=== PATIENT | female | born 1940 | race Caucasian/White ===

== ENCOUNTER 2018-12-18 15:15 | Emergency (ER) | payer MEDICARE ==
[~2018-12-18] VITALS: Ht 165.1 cm; Wt 106.6 kg
[~2018-12-18 15:15] MED LIST: CLON.5 PO; FURO40 PO; HYDACE5 PO; HYDRA50 PO; LISI20 PO; METO100ER PO; OXYACE5T PO; PANT40 PO; POTA10T PO; Prednisone20 MG PO; SIMV40 PO; VERA240ER PO
== END 2018-12-18 18:57 | disposition home or self-care (01) ==
LOC: ER 15:15
DX: S06.9X1A Unspecified intracranial injury with loss of consciousness of 30 minutes or less, initial encounter (principal); S00.12XA Contusion of left eyelid and periocular area, initial encounter; W01.198A Fall on same level from slipping, tripping and stumbling with subsequent striking against other object, initial encounter; Z88.2 Allergy status to sulfonamides; Z79.899 Other long term (current) drug therapy; Z79.52 Long term (current) use of systemic steroids; I10 Essential (primary) hypertension; Z87.891 Personal history of nicotine dependence
CPT/HCPCS: 70450; 70480; 99284-25

== ENCOUNTER → 2019-04-03 | Outpatient (CLI) | payer MEDICARE | END | disposition home or self-care (01) | LOC: PLD 08:02 → LAB SHORT 08:02 | DX: B35.1 Tinea unguium (principal) | CPT/HCPCS: 88305; 88312 ==

== ENCOUNTER 2020-10-23 09:23 | Day surgery (SDC) | payer MEDICARE ==
[~2020-10-23] VITALS: Ht 162.6 cm; Wt 103.2 kg
[~2020-10-23 09:23] MED LIST changes: +AMARYL1 M1 PO; +Aspir 8181 MG PO; +ERGO50000 PO; +FERROUS SULFAT325 M3 PO; +Isosorbide Mono30 MG PO; +K-Dur 20 meq T20 MEQ PO; +LOSARTAN POTAS100 MG PO; +MAGNESIUM OXID500 MG PO; +METO50ER PO; +NITR.4SL SL; +OMEP20ER PO; +PROLIA60 MG/1 ML SC; +ROPI.25 PO; +TURMERIC500 M2 PO; +VERA120ERB PO; +VIT1CAPS12 PO
--- NOTE | 2020-10-23 13:13 | NUR ---
10/23/20 1313 Ariel Song LATE ENTRY. PT NEEDED RESTROOM "URGENTLY." SHE WAS ESCORTED TO THE RESTROOM WITHOUT DIFFICULTY. WHILE IN THE RESTROOM THIS NURSE HEARD A LOUD BAG AGAINST THE WALL. I OPENED THE RESTROOM DOOR AND FOUND PT TO BE SEATED ON THE RESTROOM FLOOR WITH HER BACK AGAINST THE WALL. SHE STATES THAT SHE FELL WHILE TRYING TO WASH HER HANDS. PT WAS ALERT AND ORIENTED BUT COMPLAINED OF DIZZINESS. WHEN ASKED IF SHE HURT ANYWHERE SHE DID COMPLAIN OF RIGHT HIP PAIN BUT NOTES THE HIP ALWAYS HURTS AND IT IS NO DIFFERENT AT THIS TIME. I WAS ABLE TO GET HER TO HER FEET AND SHE WAS RETURNED TO HER ROOM VIA WHEELCHAIR. DR. LITTLEJOHN WAS NOTIFIED AND HE DID EXAMINE HER. HER NEURO EXAM WAS NORMAL AND THE ONLY PAIN ELICITED WAS WHEN HE PALPATED HER RIGHT HIP. SHE STATED SEVERAL TIMES TO DR LITTLEJOHN THAT HER PAIN IS HER "NORMAL" AND THAT SHE IS FINE. DR LITTLEJOHN OFFERED AN XRAY OF HER HIP BUT PT DECLINED. SHE WAS INSTRUCTED TO CONTACT [facility] OR DR. LITTLEJOHN'S OFFICE IF SHE HAS ANY CHANGE IN HER HIP PAIN. AT TIME OF DISCHARGE PT WAS STILL SAYING THAT HER HIP "IS FINE."
== END 2020-10-23 12:20 | disposition home or self-care (01) ==
LOC: ORSCSDS 09:23
PROVIDERS: Internal Medicine Gastroenterology
PROC: 0DBL8ZX Excision of Transverse Colon, Via Natural or Artificial Opening Endoscopic, Diagnostic (ICD-10-PCS; principal; 2020-10-23 10:30)
PROC: 0D758ZZ Dilation of Esophagus, Via Natural or Artificial Opening Endoscopic (ICD-10-PCS; principal; 2020-10-23 10:30)
PROC: 0DBM8ZX Excision of Descending Colon, Via Natural or Artificial Opening Endoscopic, Diagnostic (ICD-10-PCS; principal; 2020-10-23 10:30)
PROC: 0DBH8ZX Excision of Cecum, Via Natural or Artificial Opening Endoscopic, Diagnostic (ICD-10-PCS; principal; 2020-10-23 10:30)
PROC: 0DB78ZX Excision of Stomach, Pylorus, Via Natural or Artificial Opening Endoscopic, Diagnostic (ICD-10-PCS; principal; 2020-10-23 10:30)
DX: R13.10 Dysphagia, unspecified (principal); K21.00 Gastro-esophageal reflux disease with esophagitis, without bleeding; K29.70 Gastritis, unspecified, without bleeding; K22.2 Esophageal obstruction; K44.9 Diaphragmatic hernia without obstruction or gangrene; K31.4 Gastric diverticulum; K31.7 Polyp of stomach and duodenum; Z12.11 Encounter for screening for malignant neoplasm of colon; Z86.010 Personal history of colon polyps; D12.0 Benign neoplasm of cecum; D12.3 Benign neoplasm of transverse colon; D12.4 Benign neoplasm of descending colon; K64.8 Other hemorrhoids; K64.4 Residual hemorrhoidal skin tags; Z79.82 Long term (current) use of aspirin; Z79.899 Other long term (current) drug therapy; N18.9 Chronic kidney disease, unspecified; E11.9 Type 2 diabetes mellitus without complications; E78.5 Hyperlipidemia, unspecified; I10 Essential (primary) hypertension; Z86.718 Personal history of other venous thrombosis and embolism; Z87.891 Personal history of nicotine dependence
CPT/HCPCS: 82947; 88305; 88342; C1726; J2704; J3010; J7120

== ENCOUNTER 2022-03-14 08:21 | Emergency (ER) | payer MEDICARE ==
[~2022-03-14] VITALS: Ht 165.1 cm; Wt 106.6 kg
[2022-03-14 08:47] LABS: BASOPHILS ABSOLUTE AUTO 0.06 K/mm3 (0.00-0.23); BASOPHILS PERCENT AUTO 1 % (0-2); EOSINOPHILS ABSOLUTE AUTO 0.14 K/mm3 (0.00-0.68); EOSINOPHILS PERCENT AUTO 2 % (0-6); Hematocrit 37.9 % (33.0-51.0); Hemoglobin 12.1 g/dL (11.5-16.0); IMMATURE GRAN ABSOLUTE AUTO 0.04 K/mm3 (0.00-0.10); IMMATURE GRAN PERCENT AUTO 1 % (0-1); LYMPHOCYTES ABSOLUTE AUTO 2.18 K/mm3 (0.84-5.20); LYMPHOCYTES PERCENT AUTO 25 % (21-46); MONOCYTES PERCENT AUTO 10 % (4-13); Mean Corpuscular HGB 30.9 pg (26.0-34.0); Mean Corpuscular HGB Conc 31.9 g/dL (31.5-36.5); Mean Corpuscular Volume 97 fL (80-100); Mean Platelet Volume 10.4 fL (9.1-12.4); NEUTROPHILS ABSOLUTE AUTO 5.47 K/mm3 (1.96-9.15); NEUTROPHILS PERCENT AUTO 62 % (41-73); Platelet Count 257 K/mm3 (150-400); RDW Standard Deviation 53.6 fL (35.1-46.3); Red Blood Cell Count 3.92 M/mm3 (3.80-5.20); White Blood Cell Count 8.79 K/mm3 (4.00-11.30)
[2022-03-14 09:09] LABS: Albumin, Blood 3.5 g/dL (3.4-5.0); Bilirubin, Total 0.5 mg/dL (0.1-1.0); Bun/Creatinine Ratio 26.8 (12.0-20.0); Calcium, Blood 9.3 mg/dL (8.5-10.1); Creatinine, Blood 1.83 mg/dL (0.40-1.00); Globulin, Blood 3.4 g/dL (2.2-4.0); Magnesium, Blood 2.8 mg/dL (1.6-2.4); Potassium, Blood 3.9 mmol/L (3.5-5.5); Thyroid Stimulating Hormone 2.14 uIU/mL (0.360-4.800); Total Protein, Blood 6.9 g/dL (6.4-8.2)
[2022-03-14] MEDS ORDERED: Toprol Xl50 MG PO (11:35)
[2022-03-14] MEDS ORDERED: ELIQUIS2.5 MG PO (11:35)
== END 2022-03-14 11:50 | disposition home or self-care (01) ==
LOC: ER 08:21
PROVIDERS: Emergency Medicine
DX: I48.91 Unspecified atrial fibrillation (principal); I10 Essential (primary) hypertension; Z88.2 Allergy status to sulfonamides; Z79.899 Other long term (current) drug therapy; Z79.82 Long term (current) use of aspirin; Z79.84 Long term (current) use of oral hypoglycemic drugs
CPT/HCPCS: 71045; 80053; 83735; 84443; 85025; 93005; 93010; A9270; J7030

== ENCOUNTER 2022-05-25 16:34 | Inpatient (IN) | payer MEDICARE ==
[~2022-05-25] VITALS: Ht 162.6 cm; Wt 97.5 kg
[~2022-05-25 16:34] MED LIST changes: +ELIQUIS2.5 MG PO; -SIMV40 PO; +Toprol Xl50 MG PO; +ZOCOR20 MG PO
[2022-05-25 17:32] LABS: BASOPHILS ABSOLUTE AUTO 0.04 K/mm3 (0.00-0.23); BASOPHILS PERCENT AUTO 0 % (0-2); EOSINOPHILS ABSOLUTE AUTO 0.07 K/mm3 (0.00-0.68); EOSINOPHILS PERCENT AUTO 1 % (0-6); Hematocrit 38.2 % (33.0-51.0); Hemoglobin 12.7 g/dL (11.5-16.0); IMMATURE GRAN ABSOLUTE AUTO 0.11 K/mm3 (0.00-0.10); IMMATURE GRAN PERCENT AUTO 1 % (0-1); LYMPHOCYTES ABSOLUTE AUTO 0.83 K/mm3 (0.84-5.20); LYMPHOCYTES PERCENT AUTO 6 % (21-46); MONOCYTES PERCENT AUTO 7 % (4-13); Mean Corpuscular HGB 31.5 pg (26.0-34.0); Mean Corpuscular HGB Conc 33.2 g/dL (31.5-36.5); Mean Corpuscular Volume 95 fL (80-100); Mean Platelet Volume 11.7 fL (9.1-12.4); NEUTROPHILS ABSOLUTE AUTO 12.95 K/mm3 (1.96-9.15); NEUTROPHILS PERCENT AUTO 86 % (41-73); NRBC ABSOLUTE 0.05 K/mm3 (0.00-0.02); NRBC Auto 0.3 /100 WBC (0.0-0.2); Platelet Count 281 K/mm3 (150-400); RDW Coefficient Variation 13.9 % (11.7-14.2); RDW Standard Deviation 48.2 fL (35.1-46.3); Red Blood Cell Count 4.03 M/mm3 (3.80-5.20)
[2022-05-25 17:36] LABS: Base Excess Venous -2.5 mmol/L; Bicarbonate Venous 21.9 mmol/L (24.0-30.0); PCO2 Venous 43.5 mmHg (38-42); pH Blood Venous 7.34 (7.34-7.37)
[2022-05-25 17:57] LABS: Alanine Aminotransfer (ALT/SGP 23 U/L (12-78); Albumin, Blood 3.3 g/dL (3.4-5.0); Alk Phos 32 U/L (50-136); Anion Gap 10 mmol/L (6-16); Aspartate Aminotrans (AST/SGOT 20 U/L (12-37); Bilirubin, Total 0.5 mg/dL (0.1-1.0); Blood Urea Nitrogen 48 mg/dL (8-24); Bun/Creatinine Ratio 23.8 (12.0-20.0); CO2, Blood 23 mmol/L (21-32); Calcium, Blood 10.3 mg/dL (8.5-10.1); Chloride, Blood 97 mmol/L (98-108); Creatinine, Blood 2.02 mg/dL (0.40-1.00); Globulin, Blood 3.3 g/dL (2.2-4.0); Glomerular Filtration Rate 24 (60-); Glucose, Blood 628 mg/dL (70-99); Sodium, Blood 130 mmol/L (136-145); Total Protein, Blood 6.6 g/dL (6.4-8.2)
[2022-05-25 23:14] LABS: Glucose, Blood 576 mg/dL (70-99)
[2022-05-25 23:59] LABS: Source, Urine Straight Cath
[2022-05-26 00:06] LABS: Bilirubin, Urine Neg (Neg); Blood, Urine Neg (Neg); Glucose Qualitative, Urine 4+ (Neg); Ketones, Urine Neg (Neg); Leukocyte Esterase, Urine Neg (Neg); Nitrite, Urine Neg (Neg); Protein, Urine Neg (Neg); Urobilinogen, Urine NORM (Normal)
[2022-05-26 00:30] LABS: Appearance, Urine Clear (Clear); Color, Urine Yellow (P-Yellow)
[2022-05-26 00:35] LABS: Very Low Density Lipoprot Chol 30 mg/dL (6-32)
[2022-05-26 00:36] LABS: Cholesterol 108 mg/dL (50-200); HDL Cholesterol 55 mg/dL (>39); LDL/HDL RATIO 0.4; Low Density Lipoprotein Chol 23 mg/dL (0-110); Triglycerides 152 mg/dL (30-160)
[2022-05-26] MEDS ORDERED: HYDR100 PO (01:15)
[2022-05-26] MEDS ORDERED: OMEP20ER (01:16)
[2022-05-26] MEDS ORDERED: Isosorbide Mono30 MG PO (01:16)
[2022-05-26] MEDS ORDERED: Vitamin D1000 UNI1 PO (01:17)
[2022-05-26] MEDS ORDERED: GLIP5ER PO (01:18)
[2022-05-26] MEDS ORDERED: JARDIANCE25 MG PO (01:18)
[2022-05-26] MEDS ORDERED: METO100ER PO (01:19)
[2022-05-26] MEDS ORDERED: NIFE30ER PO (01:20)
[2022-05-26] MEDS ORDERED: OMEP20ER PO (01:22)
[2022-05-26 02:22] LABS: Glucose, Blood 539 mg/dL (70-99)
[2022-05-26 07:43] LABS: BASOPHILS ABSOLUTE AUTO 0.02 K/mm3 (0.00-0.23); BASOPHILS PERCENT AUTO 0 % (0-2); EOSINOPHILS ABSOLUTE AUTO 0.06 K/mm3 (0.00-0.68); EOSINOPHILS PERCENT AUTO 0 % (0-6); Hematocrit 35.9 % (33.0-51.0); IMMATURE GRAN ABSOLUTE AUTO 0.09 K/mm3 (0.00-0.10); IMMATURE GRAN PERCENT AUTO 1 % (0-1); LYMPHOCYTES ABSOLUTE AUTO 0.82 K/mm3 (0.84-5.20); LYMPHOCYTES PERCENT AUTO 6 % (21-46); MONOCYTES PERCENT AUTO 8 % (4-13); Mean Corpuscular HGB 31.7 pg (26.0-34.0); Mean Corpuscular HGB Conc 33.4 g/dL (31.5-36.5); Mean Corpuscular Volume 95 fL (80-100); Mean Platelet Volume 11.5 fL (9.1-12.4); NEUTROPHILS ABSOLUTE AUTO 11.58 K/mm3 (1.96-9.15); NEUTROPHILS PERCENT AUTO 85 % (41-73); Platelet Count 211 K/mm3 (150-400); RDW Coefficient Variation 13.8 % (11.7-14.2); RDW Standard Deviation 47.8 fL (35.1-46.3); Red Blood Cell Count 3.79 M/mm3 (3.80-5.20); White Blood Cell Count 13.67 K/mm3 (4.00-11.30)
[2022-05-26 08:29] LABS: Albumin, Blood 3.2 g/dL (3.4-5.0); Bilirubin, Total 0.5 mg/dL (0.1-1.0); Calcium, Blood 10.3 mg/dL (8.5-10.1); Creatinine, Blood 2.17 mg/dL (0.40-1.00); Globulin, Blood 3.1 g/dL (2.2-4.0); Potassium, Blood 4.2 mmol/L (3.5-5.5); Total Protein, Blood 6.3 g/dL (6.4-8.2)
--- NOTE | 2022-05-26 17:59 | NUR ---
SHIFT SUMMARY PATIENT ADMITTED FROM ER AT 1035. PATIENT SETTLED INTO ROOM. PATIENT ORIENTED TO CALL LIGHT AND TV CONTROL. PATIENT DENIES PAIN, NAUSEA, AND SHORTNESS OF BREATH SINCE ADMISSION. PATIENT RESTING IN BED, SLEEPING ON AND OFF MOST OF SHIFT. PATIENT SON VISITED. ACOSTA IS PATENT AND DRAINING TO GRAVITY. PATIENT IS NPO. NEW IV PLACED DUE TO LEAKING. PATIENT IS PLEASANT AND COOPERATIVE WITH CARE.
--- NOTE | 2022-05-27 04:32 | NUR ---
SHIFT SUMMARY PATIENT HAD NO ACUTE CHANGES. AXOX 4 AND BEDREST. NPO. PIV REMAINS INTACT. NS INFUSING @ 100 mL/HR BAG 2 OF 2. CBG Q6 CHECK 116. APPLICATION CONSULTANT REPORTS AFIB 116. ACOSTA PATENT AND DRAINING TO GRAVITY. DENIES PAIN, SOB, AND N/V. AFEBRILE. CALL LIGHT IN REACH. BED IN LOWEST POSITION. WILL CONTINUE TO MONITOR UNTIL DAY SHIFT NURSE ASSUMES CARE.
[2022-05-27 04:51] LABS: Hemoglobin 11.4 g/dL (11.5-16.0); Mean Corpuscular HGB 31.7 pg (26.0-34.0); Mean Corpuscular HGB Conc 33.5 g/dL (31.5-36.5); Mean Corpuscular Volume 94 fL (80-100); Mean Platelet Volume 11.5 fL (9.1-12.4); Platelet Count 192 K/mm3 (150-400); White Blood Cell Count 13.05 K/mm3 (4.00-11.30)
[2022-05-27 05:22] LABS: Albumin, Blood 2.5 g/dL (3.4-5.0); Albumin/Globulin Ratio 0.8 (0.8-1.8); Bilirubin, Total 0.6 mg/dL (0.1-1.0); Bun/Creatinine Ratio 21.7 (12.0-20.0); Calcium, Blood 9.4 mg/dL (8.5-10.1); Creatinine, Blood 1.8 mg/dL (0.40-1.00); Potassium, Blood 3.7 mmol/L (3.5-5.5); Total Protein, Blood 5.5 g/dL (6.4-8.2)
--- NOTE | 2022-05-27 18:06 | NUR ---
SHIFT SUMMARY PATIENT DENIES PAIN, NAUSEA, AND SHORTNESS OF BREATH. PATIENT IS A 1P WITH [facility] FOR TRANSFERS. PATIENT WORKED WITH PT AND OT TODAY. PATIENT SON AT BEDSIDE WITH MANY QUESTIONS. PATIENT ADVANCED TO CLEAR LIQUID DIET, TOLERATING WELL. PATIENT DENIES PAIN AND NAUSEA AFTER EATING. ACOSTA IS PATENT AND DRAINING TO GRAVITY. PATIENT IS EATING AND DRINKING WELL. PATIENT IS PLEASANT AND COOPERATIVE WITH CARE.
--- NOTE | 2022-05-28 04:25 | NUR ---
SHIFT SUMMARY PATIENT HAD NO ACUTE CHANGES. AXOX 4 AND 1-2 ASSIST W/FWW TO BSC. PIV REMAINS INTACT. ACOSTA PATENT AND DRAINING TO GRAVITY. CBG Q6 CHECK 205. VSS/AFEBRILE. DENIES PAIN, SOB, AND N/V. COOPERATIVE WITH CARE. CALL LIGHT IN REACH. BED IN LOWEST POSITION. WILL CONTINUE TO MONITOR UNTIL DAY SHIFT NURSE ASSUMES CARE.
[2022-05-28 04:56] LABS: Hematocrit 31.5 % (33.0-51.0); Hemoglobin 10.6 g/dL (11.5-16.0); Mean Corpuscular HGB 31.7 pg (26.0-34.0); Mean Corpuscular HGB Conc 33.7 g/dL (31.5-36.5); Mean Corpuscular Volume 94 fL (80-100); Mean Platelet Volume 11.5 fL (9.1-12.4); Platelet Count 188 K/mm3 (150-400); Red Blood Cell Count 3.34 M/mm3 (3.80-5.20)
[2022-05-28 05:18] LABS: Albumin, Blood 2.4 g/dL (3.4-5.0); Albumin/Globulin Ratio 0.8 (0.8-1.8); Bilirubin, Total 0.4 mg/dL (0.1-1.0); Bun/Creatinine Ratio 22.4 (12.0-20.0); Calcium, Blood 8.9 mg/dL (8.5-10.1); Creatinine, Blood 1.61 mg/dL (0.40-1.00); Potassium, Blood 3.6 mmol/L (3.5-5.5); Total Protein, Blood 5.4 g/dL (6.4-8.2)
--- NOTE | 2022-05-28 18:49 | NUR ---
SHIFT SUMMARY PT A&O X 4. VSS. NO ACUTE CHANGES TODAY. PARTICIPATED WITH PT TODAY. F/C REMAINS INTACT & PATENT. NO C/O PAIN OR DISCOMFORT.
--- NOTE | 2022-05-29 04:20 | NUR ---
SHIFT SUMMARY PATIENT HAD NO ACUTE CHANGES. AXOX 4 AND ONE ASSIST TO BSC W/FWW. ACOSTA PATENT AND DRAINING TO GRAVITY. PIV REMAINS INTACT. CBG 246. VSS/AFEBRILE. DENIES PAIN, SOB, AND N/V. COOPERATIVE WITH CARE. CALL LIGHT IN REACH. BED IN LOWEST POSITION. WILL CONTINUE TO MONITOR UNTIL DAY SHIFT NURSE ASSUMES CARE.
[2022-05-29 05:46] LABS: Hematocrit 31.8 % (33.0-51.0); Hemoglobin 10.4 g/dL (11.5-16.0); Mean Corpuscular HGB Conc 32.7 g/dL (31.5-36.5); Mean Corpuscular Volume 95 fL (80-100); Mean Platelet Volume 11.4 fL (9.1-12.4); Platelet Count 178 K/mm3 (150-400); RDW Coefficient Variation 14.2 % (11.7-14.2); RDW Standard Deviation 49.1 fL (35.1-46.3); Red Blood Cell Count 3.36 M/mm3 (3.80-5.20); White Blood Cell Count 8.69 K/mm3 (4.00-11.30)
[2022-05-29 06:04] LABS: Bun/Creatinine Ratio 24.7 (12.0-20.0); Calcium, Blood 8.6 mg/dL (8.5-10.1); Creatinine, Blood 1.62 mg/dL (0.40-1.00); Potassium, Blood 3.6 mmol/L (3.5-5.5)
--- NOTE | 2022-05-29 15:24 | NUR ---
DC HOME F/C DC'D WITH CATH INTACT 2 HRS PRIOR TO DC. PT SELF CATHS AT HOME. PIV DC'D WITH CATH TIP INTACT, NO REDNESS OR SWELLING NOTED. WRITTEN AND VERBAL DC INSTRUCTIONS GIVEN TO PT WITH SON PRESENT. BOTH VERBALIZED GOOD UNDERSTANDING. NEW SCRIPTS FAXED TO [facility] PER PT REQUEST. ALL QUESTIONS & CONCERNS ANSWERED. PT TO SON'S PRIVATE VEHICLE WITH ALL PERSONAL BELONGINGS VIA W/C.
== END 2022-05-29 15:45 | disposition home or self-care (01) | DRG 438 ==
LOC: ER 16:34 → MEDS 05-26 01:09 → ERHOLD 05-26 01:09 → MEDS 05-26 10:46
PROVIDERS: Emergency Medicine; Family Medicine; Internal Medicine; Physician Assistant; ADMIT Student in an Organized Health Care Education/Training Program
DX: K85.90 Acute pancreatitis without necrosis or infection, unspecified (principal); G93.41 Metabolic encephalopathy; I13.0 Hypertensive heart and chronic kidney disease with heart failure and stage 1 through stage 4 chronic kidney disease, or unspecified chronic kidney disease; N17.9 Acute kidney failure, unspecified; N18.4 Chronic kidney disease, stage 4 (severe); E11.22 Type 2 diabetes mellitus with diabetic chronic kidney disease; K21.9 Gastro-esophageal reflux disease without esophagitis; I48.91 Unspecified atrial fibrillation; E11.65 Type 2 diabetes mellitus with hyperglycemia; R94.31 Abnormal electrocardiogram [ECG] [EKG]; I50.9 Heart failure, unspecified; Z90.49 Acquired absence of other specified parts of digestive tract; Z90.710 Acquired absence of both cervix and uterus; Z98.890 Other specified postprocedural states; Z88.2 Allergy status to sulfonamides; Z79.01 Long term (current) use of anticoagulants; Z79.82 Long term (current) use of aspirin; Z79.899 Other long term (current) drug therapy
CPT/HCPCS: 36415; 51702; 76705; 80048; 80053; 80061; 81003; 82803; 82947; 83690; 83880; 85025; 85027; 93005; 93010; 93306; 96374-59; 96375-59; 96376-59; 97110; 97116; 97162; 97165; 97530; 97535; 99285-25; A9270; J1170; J2405; J7030; J7120

== ENCOUNTER 2022-06-01 11:05 | Inpatient (IN) | payer MEDICARE ==
[~2022-06-01] VITALS: Ht 165.1 cm; Wt 99.7 kg
[~2022-06-01 11:05] MED LIST changes: +GLIP5ER PO; +HYDR100 PO; +JARDIANCE25 MG PO; +NIFE30ER PO; +OMEP20ER; +Vitamin D1000 UNI1 PO
[2022-06-01 11:33] LABS: BASOPHILS ABSOLUTE AUTO 0.05 K/mm3 (0.00-0.23); BASOPHILS PERCENT AUTO 1 % (0-2); EOSINOPHILS ABSOLUTE AUTO 0.15 K/mm3 (0.00-0.68); EOSINOPHILS PERCENT AUTO 1 % (0-6); Hematocrit 34.6 % (33.0-51.0); Hemoglobin 11.1 g/dL (11.5-16.0); IMMATURE GRAN ABSOLUTE AUTO 0.07 K/mm3 (0.00-0.10); IMMATURE GRAN PERCENT AUTO 1 % (0-1); LYMPHOCYTES ABSOLUTE AUTO 0.71 K/mm3 (0.84-5.20); LYMPHOCYTES PERCENT AUTO 7 % (21-46); MONOCYTES ABSOLUTE AUTO 0.99 K/mm3 (0.16-1.47); MONOCYTES PERCENT AUTO 9 % (4-13); Mean Corpuscular HGB 31.1 pg (26.0-34.0); Mean Corpuscular HGB Conc 32.1 g/dL (31.5-36.5); Mean Corpuscular Volume 97 fL (80-100); Mean Platelet Volume 11.2 fL (9.1-12.4); NEUTROPHILS ABSOLUTE AUTO 8.99 K/mm3 (1.96-9.15); NEUTROPHILS PERCENT AUTO 82 % (41-73); Platelet Count 257 K/mm3 (150-400); RDW Coefficient Variation 14.6 % (11.7-14.2); RDW Standard Deviation 51.8 fL (35.1-46.3); Red Blood Cell Count 3.57 M/mm3 (3.80-5.20); White Blood Cell Count 10.96 K/mm3 (4.00-11.30)
[2022-06-01 11:47] LABS: Base Excess Venous -5.6 mmol/L; Bicarbonate Venous 20.3 mmol/L (24.0-30.0); PCO2 Venous 36.1 mmHg (38-42); pH Blood Venous 7.35 (7.34-7.37)
[2022-06-01 11:57] LABS: Albumin, Blood 2.9 g/dL (3.4-5.0); Albumin/Globulin Ratio 0.8 (0.8-1.8); Bilirubin, Total 0.4 mg/dL (0.1-1.0); Bun/Creatinine Ratio 17.1 (12.0-20.0); Calcium, Blood 8.6 mg/dL (8.5-10.1); Creatinine, Blood 1.46 mg/dL (0.40-1.00); Globulin, Blood 3.7 g/dL (2.2-4.0); Potassium, Blood 4.1 mmol/L (3.5-5.5); Total Protein, Blood 6.6 g/dL (6.4-8.2)
[2022-06-01 13:01] LABS: Influenza A, PCR NEGATIVE (NEGATIVE); Influenza B, PCR NEGATIVE (NEGATIVE); Resp Syncytial Virus, PCR NEGATIVE (NEGATIVE); SARS-Cov-2 (COVID-19) PCR, MMC NEGATIVE (NEGATIVE)
--- NOTE | 2022-06-01 14:46 | NUR ---
Report received from DAPHNIE Kahn. Pt to come to [facility] shortly.
--- NOTE | 2022-06-01 15:56 | NUR ---
Pt arrived to PCU, son Buster is with her.
[2022-06-01] MEDS ORDERED: INSULANI SC (16:07)
--- NOTE | 2022-06-01 18:03 | NUR ---
Pt arrived to unit approx 1600, and was able to stand and transfer from the stretcher to the bed and sit on the side of bed during initial assessment. She was short of breath with the activity, and used the walker for transfer. Staff assist using the gait belt, moderate assistance needed to stand and transfer, and she needed maximal assistance to get her legs into the bed. She requires no supplemental oxygen. Cardizem gtt infusing at 10 cc/hour, heart rate 130-140 upon arrival. B/P noted stable, rate increased to 15 cc/hour. At this time heart rate is 113 bpm and blood pressure is 106/94 (100). She ate dinner after getting ordered insulin. Dr. Wolfe was called regarding CBG 420. New orders received. Admission assessment and history were done with the patient, and pt said that she did not want CPR nor artificial ventilation. Her son Buster was supportive of her decision. Called Dr. Wolfe and notified him of this.
[2022-06-02 04:32] LABS: Hemoglobin 10.5 g/dL (11.5-16.0); Mean Corpuscular HGB 31.9 pg (26.0-34.0); Mean Corpuscular HGB Conc 33.9 g/dL (31.5-36.5); Mean Corpuscular Volume 94 fL (80-100); Mean Platelet Volume 11.1 fL (9.1-12.4); Platelet Count 240 K/mm3 (150-400); RDW Coefficient Variation 14.6 % (11.7-14.2); RDW Standard Deviation 50.4 fL (35.1-46.3); Red Blood Cell Count 3.29 M/mm3 (3.80-5.20); White Blood Cell Count 8.96 K/mm3 (4.00-11.30)
[2022-06-02 04:54] LABS: Bun/Creatinine Ratio 16.2 (12.0-20.0); Calcium, Blood 8.7 mg/dL (8.5-10.1); Creatinine, Blood 1.54 mg/dL (0.40-1.00); Magnesium, Blood 2.2 mg/dL (1.6-2.4)
--- NOTE | 2022-06-02 05:35 | NUR ---
SHIFT SUMMARY PT IS A&OX4, Q2 TURN IN BED, HAS HAD NO COMPLAINTS THIS SHIFT, SP02 >95% RA, AND HAS BEEN AFIB 80'S-140'S THIS SHIFT ON A DILT DRIP. HER BP'S HAVE BEEN ON THE SOFTER SIDE T/O THE SHIFT BUT MAP HAS REMAINED STABLE. PT CALLS APPROPRIATELY, BED ALARM IS ONE, CALL LIGHT IS IN REACH, AND BED IS IN A LOW POSITION. WILL CONTINUE TO MONITOR UNTIL SHIFT REPORT IS GIVEN TO THE ONCOMING SHIFT RN. SEE NOTES FOR ANY UPDATES.
--- NOTE | 2022-06-02 07:22 | NUR ---
Pt is awake, alert and oriented. Pleasantly conversant. Pt was assisted up to recliner at bedside. Heartrate on 10 mg/hour of cardizem gtt is 110-152 while sitting up in chair, talking with son. Dyspnea noted with activity, but she recovered within some minutes. Denies pain/discomfort this morning. States she slept poorly and is tired this morning. Lung sounds are clear except for inspiratory crackles on the left side posterior bases. No peripheral edema noted. Pt states that she does have pain on the left calf since falling 2 weeks ago. Noted some scattered bruising on the left leg, and a little on the right as well. DNR bracelet is on.
--- NOTE | 2022-06-02 08:55 | NUR ---
Dr. Persaud and Dr. Patricia rounded this morning.
[2022-06-02 09:29] LABS: Source, Urine Foley catheter
--- NOTE | 2022-06-02 09:29 | NUR ---
Pt's IV came out. Not certain how long the IV catheter had not been in place, as it was still secured partially by the dressing; Heart rate 105-130 at this time. Toprol XL was just admininstered.
[2022-06-02 09:33] LABS: Appearance, Urine Clear (Clear); Bilirubin, Urine Neg (Neg); Blood, Urine 2+ (Neg); Color, Urine Yellow (P-Yellow); Glucose Qualitative, Urine 2+ (Neg); Ketones, Urine Neg (Neg); Leukocyte Esterase, Urine 1+ (Neg); Nitrite, Urine Neg (Neg); Protein, Urine 2+ (Neg); Urobilinogen, Urine NORM (Normal)
[2022-06-02 09:53] LABS: Squamous Epithelial Cells Mod /hpf (Few)
[2022-06-02 09:54] LABS: Bacteria Many /hpf; Granular Casts 0-2 /lpf (0); Yeast/Fungi Urine Mod /hpf
[2022-06-02 11:51] LABS: Albumin, Blood 2.7 g/dL (3.4-5.0); Albumin/Globulin Ratio 0.9 (0.8-1.8); Bilirubin, Direct 0.2 mg/dL (0.0-0.3); Bilirubin, Indirect 0.2 mg/dL (0.1-0.7); Bilirubin, Total 0.4 mg/dL (0.1-1.0); Globulin, Blood 3.1 g/dL (2.2-4.0); Total Protein, Blood 5.8 g/dL (6.4-8.2)
[2022-06-02 11:57] LABS: Thyroid Stimulating Hormone 2.62 uIU/mL (0.360-4.800)
--- NOTE | 2022-06-02 16:36 | NUR ---
Call to Dr. Patricia regarding persistent RVR 120-140 this afternoon, while pt is at rest. Pt is not in distress, no dyspnea, and no pain/discomfort. B/P is stable.
--- NOTE | 2022-06-02 17:26 | NUR ---
Starting amiodarone bolus
--- NOTE | 2022-06-03 04:19 | NUR ---
SHIFT SUMMARY NO ACUTE CHANGES THIS SHIFT. AXO. VSS. AMIO GTT CONTINUES TO INFUSE, TITRATED TO HALF RATE. HR HAS TRENDED FROM 120'S TO 100'S. BP SOFT BUT STABLE WITH MAP >65. REMAINS IN AFIB. PT BEING ROLLED BY STAFF. ACOSTA SECURED, CLEANED. ENCOURAGING ROM WITH PATIENT WHEN AWAKE. OTHERWISE, PT USING CALL LIGHT APPROPRIATELY. BED IN LOW POSITION.
[2022-06-03 06:36] LABS: BASOPHILS ABSOLUTE AUTO 0.03 K/mm3 (0.00-0.23); BASOPHILS PERCENT AUTO 0 % (0-2); EOSINOPHILS ABSOLUTE AUTO 0.21 K/mm3 (0.00-0.68); EOSINOPHILS PERCENT AUTO 2 % (0-6); Hemoglobin 10.8 g/dL (11.5-16.0); IMMATURE GRAN ABSOLUTE AUTO 0.08 K/mm3 (0.00-0.10); IMMATURE GRAN PERCENT AUTO 1 % (0-1); LYMPHOCYTES ABSOLUTE AUTO 0.92 K/mm3 (0.84-5.20); LYMPHOCYTES PERCENT AUTO 10 % (21-46); MONOCYTES ABSOLUTE AUTO 0.92 K/mm3 (0.16-1.47); MONOCYTES PERCENT AUTO 10 % (4-13); Mean Corpuscular HGB 31.8 pg (26.0-34.0); Mean Corpuscular HGB Conc 33.8 g/dL (31.5-36.5); Mean Corpuscular Volume 94 fL (80-100); Mean Platelet Volume 11.1 fL (9.1-12.4); NEUTROPHILS ABSOLUTE AUTO 7.46 K/mm3 (1.96-9.15); NEUTROPHILS PERCENT AUTO 78 % (41-73); Platelet Count 233 K/mm3 (150-400); RDW Coefficient Variation 14.8 % (11.7-14.2); White Blood Cell Count 9.62 K/mm3 (4.00-11.30)
[2022-06-03 06:53] LABS: Albumin, Blood 2.7 g/dL (3.4-5.0); Albumin/Globulin Ratio 0.8 (0.8-1.8); Bilirubin, Total 0.4 mg/dL (0.1-1.0); Bun/Creatinine Ratio 20.8 (12.0-20.0); Calcium, Blood 8.5 mg/dL (8.5-10.1); Creatinine, Blood 1.59 mg/dL (0.40-1.00); Globulin, Blood 3.2 g/dL (2.2-4.0); Total Protein, Blood 5.9 g/dL (6.4-8.2)
--- NOTE | 2022-06-03 17:27 | NUR ---
ASSUMED CARE OF PT AT 0700 THIS AM. NO ACUTE CHANGES. PT ON AMIO GTT MOST OF THE DAY, SWITCHED TO PO DOSAGE THIS EVENING. PT OOB TO CHAIR FOR SEVERAL HOURS TODAY AFTER WORKING WITH PT. CASE MANAGEMENT WORKING ON ARRANGEMENTS FOR SNF PLACEMENT AT DISCHARGE. SEE DOCUMENTED VS AND ASSESSMENT. PT ABLE TO USE CALL LIGHT, CALL LIGHT IN REACH, WILL CONTINUE TO MONITOR AND GIVE REPORT TO NOC SHIFT RN.
--- NOTE | 2022-06-04 06:41 | NUR ---
NOC SHIFT SUMMARY PT SLEPT WELL OVERNIGHT. ORIENTED X4, VSS PER PT TREND. AFIB 110S-120S ON TELEMETRY. Q2 TURN. ACOSTA TO DD, DRAINING YELLOW URINE WITH SOME MUCUS. DENIES PAIN OR DISCOMFORT. WILL PASS ON TO DAY RN
--- NOTE | 2022-06-04 18:41 | NUR ---
ASSUMED CARE OF PT AT 0700 THIS AM. NO ACUTE CHANGES TO PT CONDITION NOTED T/O SHIFT. PO METOPROLOL DOSAGE INCREASED TO 200MG PO DAILY AND LANTUS INSULIN INCREASED TO 26UNITS Q HS TODAY FOR BETTER HR AND BLOOD SUGAR CONTROL. HR APPEARS TO BE IMPROVED OVER THIS SHIFT. PT OOB TO CHAIR FOR A FEW HOURS TODAY, WORKED WITH PT, OT CONSULT ORDERED WELL. PLAN TO DC TO SNF WHEN BED AVAILABLE. PT ABLE TO USE CALL LIGHT FOR NEEDS, CALL LIGHT IN REACH, WILL CONTINUE TO MONITOR AND GIVE REPORT TO NOC SHIFT RN.
--- NOTE | 2022-06-04 22:45 | NUR ---
PT UPDATE PT RESTING QUIETLY IN BED AT THIS TIME, NO APPARENT DISTRESS. CHEST RISE AND FALL EVEN. ON CONTINUOUS TELEMETRY, HR CURRENTLY 80'S-100'S AFIB.
--- NOTE | 2022-06-04 23:28 | NUR ---
CARE UPDATE PT REPOSITIONED FOR COMFORT, DENIES NEEDS, DENIES PAIN. AWOKEN FROM SLEEP FOR REPOSITIONING. SCDS IN PLACE.
--- NOTE | 2022-06-05 01:54 | NUR ---
CARE UPDATE PT REPOSITIONED FOR COMFORT, AWAKENS EASILY, NO APPARENT DISTRESS. CONTINUOUS TELE, HR 100-110'S, SATS 95-97% ON RA. DENIES FURTHER NEEDS, CALL LIGHT W/N REACH.
--- NOTE | 2022-06-05 13:53 | NUR ---
Received Report from ongoing nurse Stephanie on PCU floor. Pt ambulates/pivot from wheelchair with minimum assistance. Ptaxox4. Pt vss stables and received lunch tray on pcu floor. Pt educated on the use of call light. Will continue to monitor.
--- NOTE | 2022-06-05 17:11 | NUR ---
Pt resting comfortably in bed. Sugar checked and covered per emar.
--- NOTE | 2022-06-06 03:27 | NUR ---
Patient resting in bed at this time.
[2022-06-06 07:16] LABS: Bun/Creatinine Ratio 27.6 (12.0-20.0); Calcium, Blood 8.5 mg/dL (8.5-10.1); Creatinine, Blood 1.45 mg/dL (0.40-1.00); Potassium, Blood 3.3 mmol/L (3.5-5.5)
[2022-06-06 11:38] LABS: Influenza A, PCR NEGATIVE (NEGATIVE); Influenza B, PCR NEGATIVE (NEGATIVE); Resp Syncytial Virus, PCR NEGATIVE (NEGATIVE); SARS-Cov-2 (COVID-19) PCR, MMC NEGATIVE (NEGATIVE)
[2022-06-06] MEDS ORDERED: AMIODARONE HCL400 M2 PO (13:05)
[2022-06-06] MEDS ORDERED: HUMALOG KW100 UNIT/1 SC (13:07)
--- NOTE | 2022-06-06 15:21 | NUR ---
Pt discharge to nursing facility with all her belongings. EMS Van came to transport patient to facility. IV Removed all belongings given to son.
== END 2022-06-06 15:51 | DRG 291 ==
LOC: ER 11:05 → PCU 11:06 → MEDS 06-02 16:01 → PCU 06-02 16:01 → MEDS 06-05 13:19
PROVIDERS: Emergency Medicine; Family Medicine; Nurse Practitioner Acute Care; Student in an Organized Health Care Education/Training Program; ADMIT Internal Medicine
DX: I13.0 Hypertensive heart and chronic kidney disease with heart failure and stage 1 through stage 4 chronic kidney disease, or unspecified chronic kidney disease (principal); I50.21 Acute systolic (congestive) heart failure; I48.19 Other persistent atrial fibrillation; N18.4 Chronic kidney disease, stage 4 (severe); Z66 Do not resuscitate; Z20.822 Contact with and (suspected) exposure to COVID-19; K21.9 Gastro-esophageal reflux disease without esophagitis; E11.22 Type 2 diabetes mellitus with diabetic chronic kidney disease; I50.9 Heart failure, unspecified; E11.65 Type 2 diabetes mellitus with hyperglycemia; E66.01 Morbid (severe) obesity due to excess calories; E78.5 Hyperlipidemia, unspecified; Z68.37 Body mass index [BMI] 37.0-37.9, adult; Z90.49 Acquired absence of other specified parts of digestive tract; Z90.710 Acquired absence of both cervix and uterus; Z98.890 Other specified postprocedural states; Z88.2 Allergy status to sulfonamides; Z79.01 Long term (current) use of anticoagulants; Z79.899 Other long term (current) drug therapy
CPT/HCPCS: 0241U; 36415; 51702; 71045; 80048; 80053; 80076; 81001; 82010; 82803; 82947; 83735; 83880; 84443; 84484; 85025; 85027; 93005; 93010; 96365-59; 96366-59; 96375-59; 96376; 97110; 97110-CQ; 97116-CQ; 97129; 97163; 97166; 97530; 99285-25; A9270; G0378; J0282; J1815; J1940; J7060

== ENCOUNTER 2024-05-12 14:03 | Emergency (ER) | payer MEDICARE ==
[~2024-05-12] VITALS: Ht 165.1 cm; Wt 106.6 kg
[~2024-05-12 14:03] MED LIST changes: +AMIODARONE HCL400 M2 PO; +HUMALOG KW100 UNIT/1 SC; +INSULANI SC
[2024-05-12 15:04] LABS: BASOPHILS ABSOLUTE AUTO 0.06 K/mm3 (0.00-0.23); BASOPHILS PERCENT AUTO 1 % (0-2); EOSINOPHILS ABSOLUTE AUTO 0.15 K/mm3 (0.00-0.68); EOSINOPHILS PERCENT AUTO 1 % (0-6); Hematocrit 40.1 % (33.0-51.0); Hemoglobin 12.9 g/dL (11.5-16.0); IMMATURE GRAN ABSOLUTE AUTO 0.04 K/mm3 (0.00-0.10); IMMATURE GRAN PERCENT AUTO 0 % (0-1); LYMPHOCYTES ABSOLUTE AUTO 1.23 K/mm3 (0.84-5.20); LYMPHOCYTES PERCENT AUTO 9 % (21-46); MONOCYTES ABSOLUTE AUTO 1.11 K/mm3 (0.16-1.47); MONOCYTES PERCENT AUTO 9 % (4-13); Mean Corpuscular HGB Conc 32.2 g/dL (31.5-36.5); Mean Corpuscular Volume 93 fL (80-100); Mean Platelet Volume 11.1 fL (9.1-12.4); NEUTROPHILS ABSOLUTE AUTO 10.46 K/mm3 (1.96-9.15); NEUTROPHILS PERCENT AUTO 80 % (41-73); Platelet Count 207 K/mm3 (150-400); RDW Coefficient Variation 15.3 % (11.7-14.2); RDW Standard Deviation 52.8 fL (35.1-46.3); White Blood Cell Count 13.05 K/mm3 (4.00-11.30)
[2024-05-12 15:17] LABS: Albumin, Blood 3.6 g/dL (3.4-5.0); Albumin/Globulin Ratio 0.9 (0.8-1.8); Bilirubin, Total 0.5 mg/dL (0.1-1.0); Bun/Creatinine Ratio 21.6 (12.0-20.0); Calcium, Blood 10.2 mg/dL (8.5-10.1); Creatinine, Blood 1.39 mg/dL (0.40-1.00); Magnesium, Blood 2.4 mg/dL (1.6-2.4); Potassium, Blood 4.5 mmol/L (3.5-5.5); Total Protein, Blood 7.6 g/dL (6.4-8.2)
[2024-05-12 16:33] LABS: Source, Urine Clean Catch
[2024-05-12 16:36] LABS: Appearance, Urine Hazy (Clear); Bilirubin, Urine Neg (Neg); Blood, Urine 3+ (Neg); Glucose Qualitative, Urine Neg (Neg); Ketones, Urine Neg (Neg); Leukocyte Esterase, Urine 1+ (Neg); Nitrite, Urine Neg (Neg); Protein, Urine 2+ (Neg); Urobilinogen, Urine NORM (Normal)
[2024-05-12 16:41] LABS: Color, Urine Pale Yellow (P-Yellow)
[2024-05-12 16:42] LABS: Bacteria Many /hpf; Hyaline Casts 0-2 /lpf (0-2); Squamous Epithelial Cells Few /hpf (Few)
[2024-05-12] MEDS ORDERED: ACET500 PO (19:08)
[2024-05-12 19:40] VITALS: BP 182/78
== END 2024-05-12 19:48 | disposition home or self-care (01) ==
LOC: ER 14:03
PROVIDERS: Physician Assistant
DX: M25.551 Pain in right hip (principal); I13.0 Hypertensive heart and chronic kidney disease with heart failure and stage 1 through stage 4 chronic kidney disease, or unspecified chronic kidney disease; E11.22 Type 2 diabetes mellitus with diabetic chronic kidney disease; N18.30 Chronic kidney disease, stage 3 unspecified; I50.9 Heart failure, unspecified; I48.91 Unspecified atrial fibrillation; K21.9 Gastro-esophageal reflux disease without esophagitis; G81.91 Hemiplegia, unspecified affecting right dominant side; Z91.81 History of falling; Z88.2 Allergy status to sulfonamides; Z79.01 Long term (current) use of anticoagulants; Z79.4 Long term (current) use of insulin; Z79.82 Long term (current) use of aspirin; Z79.899 Other long term (current) drug therapy; W19.XXXA Unspecified fall, initial encounter
CPT/HCPCS: 70450; 73502; 80053; 81001; 83735; 85025; 87077; 87086; 87186; 93005; 93010; 99285-25; P9612

== ENCOUNTER 2024-11-27 09:13 | Emergency (ER) | payer MEDICARE ==
[~2024-11-27] VITALS: Ht 165.1 cm; Wt 106.6 kg
[~2024-11-27 09:13] MED LIST changes: +ACET500 PO
[2024-11-27 11:51] LABS: BASOPHILS ABSOLUTE AUTO 0.05 K/mm3 (0.00-0.23); BASOPHILS PERCENT AUTO 1 % (0-2); EOSINOPHILS ABSOLUTE AUTO 0.06 K/mm3 (0.00-0.68); EOSINOPHILS PERCENT AUTO 1 % (0-6); Hematocrit 38.4 % (33.0-51.0); Hemoglobin 11.8 g/dL (11.5-16.0); IMMATURE GRAN ABSOLUTE AUTO 0.02 K/mm3 (0.00-0.10); IMMATURE GRAN PERCENT AUTO 0 % (0-1); LYMPHOCYTES ABSOLUTE AUTO 0.79 K/mm3 (0.84-5.20); LYMPHOCYTES PERCENT AUTO 8 % (21-46); MONOCYTES ABSOLUTE AUTO 0.77 K/mm3 (0.16-1.47); MONOCYTES PERCENT AUTO 8 % (4-13); Mean Corpuscular HGB Conc 30.7 g/dL (31.5-36.5); Mean Corpuscular Volume 92 fL (80-100); NEUTROPHILS ABSOLUTE AUTO 8.33 K/mm3 (1.96-9.15); NEUTROPHILS PERCENT AUTO 83 % (41-73); NRBC ABSOLUTE 0.00 K/mm3 (0.00-0.02); NRBC Auto 0.0 /100 WBC (0.0-0.2); Platelet Count 228 K/mm3 (150-400); RDW Coefficient Variation 16.9 % (11.7-14.2); RDW Standard Deviation 57.0 fL (35.1-46.3)
[2024-11-27 12:14] LABS: Alanine Aminotransfer (ALT/SGP 7.0 U/L (12-78); Albumin, Blood 3.4 g/dL (3.4-5.0); Albumin/Globulin Ratio 0.9 (0.8-1.8); Anion Gap 9.0 mmol/L (3-11); Aspartate Aminotrans (AST/SGOT 13.0 U/L (12-37); Bilirubin, Total 0.7 mg/dL (0.1-1.0); Blood Urea Nitrogen 24.0 mg/dL (8-24); CO2, Blood 22.0 mmol/L (21-32); Calcium, Blood 9.0 mg/dL (8.5-10.1); Chloride, Blood 112.0 mmol/L (98-108); Creatinine, Blood 1.16 mg/dL (0.40-1.00); Globulin, Blood 3.7 g/dL (2.2-4.0); Glucose, Blood 140.0 mg/dL (70-99); Potassium, Blood 3.7 mmol/L (3.5-5.5); Sodium, Blood 139.0 mmol/L (136-145); Total Protein, Blood 7.1 g/dL (6.4-8.2)
[2024-11-27 12:49] LABS: Source, Urine Clean Catch
[2024-11-27] MEDS ORDERED: NS 1,000 ML IV SCH (12:55)
[2024-11-27 12:58] LABS: Bilirubin, Urine Neg (Neg); Color, Urine Amber (P-Yellow); Glucose Qualitative, Urine Neg (Neg); Ketones, Urine Neg (Neg); Leukocyte Esterase, Urine 3+ (Neg); Protein, Urine 3+ (Neg); Specific Gravity, Urine 1.015 (1.003-1.022); Urobilinogen, Urine NORM (Normal)
[2024-11-27 13:18] LABS: Red Blood Cells, Urine TNTC /hpf (0-2)
[2024-11-27 13:19] LABS: White Blood Cells, Urine TNTC /hpf (0-5)
[2024-11-27 15:12] LABS: Source, Urine Straight Cath
[2024-11-27 15:33] LABS: Bilirubin, Urine Neg (Neg); Color, Urine Amber (P-Yellow); Glucose Qualitative, Urine Neg (Neg); Ketones, Urine Neg (Neg); Leukocyte Esterase, Urine 3+ (Neg); Protein, Urine 3+ (Neg); Specific Gravity, Urine 1.010 (1.003-1.022); Urobilinogen, Urine NORM (Normal)
[2024-11-27 16:33] LABS: White Blood Cells, Urine TNTC /hpf (0-5)
[2024-11-27 16:34] LABS: Red Blood Cells, Urine TNTC /hpf (0-2)
[2024-11-27] MEDS ORDERED: CefTRIAXone Sodium 1,000 MG in NS 100 ML IV ONE (18:05)
[2024-11-27 18:30] VITALS: BP 163/99
[2024-11-27] MEDS ORDERED: CEFP200 PO (18:52)
== END 2024-11-27 19:15 | disposition home or self-care (01) ==
LOC: ER 09:13
PROVIDERS: Physician Assistant; Student in an Organized Health Care Education/Training Program
DX: N39.0 Urinary tract infection, site not specified (principal); R31.9 Hematuria, unspecified; I13.0 Hypertensive heart and chronic kidney disease with heart failure and stage 1 through stage 4 chronic kidney disease, or unspecified chronic kidney disease; I50.9 Heart failure, unspecified; E11.22 Type 2 diabetes mellitus with diabetic chronic kidney disease; N18.30 Chronic kidney disease, stage 3 unspecified; Z88.2 Allergy status to sulfonamides; Z79.4 Long term (current) use of insulin; Z79.82 Long term (current) use of aspirin; Z79.01 Long term (current) use of anticoagulants; Z79.899 Other long term (current) drug therapy; I48.91 Unspecified atrial fibrillation; Z59.89 Other problems related to housing and economic circumstances
CPT/HCPCS: 51702; 71046; 76770; 80053; 81001; 83690; 84484; 85025; 87077; 87086; 87186; 93005; 93010; 96361; 96365; 96375; 99284-25; J0696; J1938; J7030

== ENCOUNTER 2025-04-10 09:40 | Emergency (ER) | payer MEDICARE ==
[~2025-04-10] VITALS: Ht 170.2 cm; Wt 95.2 kg
[~2025-04-10 09:40] MED LIST changes: +CEFP200 PO
[2025-04-10 10:39] LABS: BASOPHILS ABSOLUTE AUTO 0.07 K/mm3 (0.00-0.23); BASOPHILS PERCENT AUTO 0 % (0-2); EOSINOPHILS ABSOLUTE AUTO 0.03 K/mm3 (0.00-0.68); EOSINOPHILS PERCENT AUTO 0 % (0-6); Hematocrit 40.6 % (33.0-51.0); Hemoglobin 12.5 g/dL (11.5-16.0); IMMATURE GRAN ABSOLUTE AUTO 0.10 K/mm3 (0.00-0.10); IMMATURE GRAN PERCENT AUTO 1 % (0-1); LYMPHOCYTES ABSOLUTE AUTO 0.41 K/mm3 (0.84-5.20); LYMPHOCYTES PERCENT AUTO 2 % (21-46); MONOCYTES ABSOLUTE AUTO 1.43 K/mm3 (0.16-1.47); MONOCYTES PERCENT AUTO 7 % (4-13); Mean Corpuscular HGB Conc 30.8 g/dL (31.5-36.5); Mean Corpuscular Volume 92 fL (80-100); NEUTROPHILS ABSOLUTE AUTO 17.32 K/mm3 (1.96-9.15); NEUTROPHILS PERCENT AUTO 89 % (41-73); NRBC ABSOLUTE 0.00 K/mm3 (0.00-0.02); NRBC Auto 0.0 /100 WBC (0.0-0.2); Platelet Count 239 K/mm3 (150-400); RDW Coefficient Variation 15.2 % (11.7-14.2); RDW Standard Deviation 51.3 fL (35.1-46.3)
[2025-04-10 10:49] LABS: Source, Urine Straight Cath
[2025-04-10 10:56] LABS: Bilirubin, Urine Neg (Neg); Color, Urine Yellow (P-Yellow); Glucose Qualitative, Urine Neg (Neg); Ketones, Urine Neg (Neg); Leukocyte Esterase, Urine 3+ (Neg); Protein, Urine 3+ (Neg); Specific Gravity, Urine 1.015 (1.003-1.022); Urobilinogen, Urine NORM (Normal)
[2025-04-10 11:10] LABS: Alanine Aminotransfer (ALT/SGP 17.0 U/L (12-78); Albumin, Blood 3.4 g/dL (3.4-5.0); Albumin/Globulin Ratio 1.0 (0.8-1.8); Anion Gap 11.0 mmol/L (3-11); Aspartate Aminotrans (AST/SGOT 13.0 U/L (12-37); Bilirubin, Total 1.1 mg/dL (0.1-1.0); Blood Urea Nitrogen 23.0 mg/dL (8-24); CO2, Blood 25.0 mmol/L (21-32); Calcium, Blood 8.9 mg/dL (8.5-10.1); Chloride, Blood 105.0 mmol/L (98-108); Creatinine, Blood 1.25 mg/dL (0.40-1.00); Globulin, Blood 3.4 g/dL (2.2-4.0); Glucose, Blood 176.0 mg/dL (70-99); Potassium, Blood 3.7 mmol/L (3.5-5.5); Sodium, Blood 137.0 mmol/L (136-145); Total Protein, Blood 6.8 g/dL (6.4-8.2)
[2025-04-10 11:15] LABS: White Blood Cells, Urine 50-100 /hpf (0-5)
[2025-04-10 11:16] LABS: Yeast/Fungi Urine Few /hpf
[2025-04-10 11:33] LABS: Influenza A, PCR NEGATIVE (NEGATIVE); Influenza B, PCR NEGATIVE (NEGATIVE); Resp Syncytial Virus, PCR NEGATIVE (NEGATIVE); SARS-Cov-2 (COVID-19) PCR, MMC NEGATIVE (NEGATIVE)
[2025-04-10] MEDS ORDERED: CefTRIAXone Sodium 1,000 MG in NS 100 ML IV ONE (12:35)
[2025-04-10] MEDS ORDERED: CEFP200 PO (13:29)
[2025-04-10 13:45] VITALS: BP 117/79
== END 2025-04-10 14:10 | disposition home or self-care (01) ==
LOC: ER 09:40
PROVIDERS: Student in an Organized Health Care Education/Training Program
DX: N39.0 Urinary tract infection, site not specified (principal); Z88.2 Allergy status to sulfonamides; I12.9 Hypertensive chronic kidney disease with stage 1 through stage 4 chronic kidney disease, or unspecified chronic kidney disease; K21.9 Gastro-esophageal reflux disease without esophagitis; I13.2 Hypertensive heart and chronic kidney disease with heart failure and with stage 5 chronic kidney disease, or end stage renal disease; E11.22 Type 2 diabetes mellitus with diabetic chronic kidney disease; I48.91 Unspecified atrial fibrillation; N18.6 End stage renal disease
CPT/HCPCS: 71046; 80053; 81001; 83880; 85025; 87077; 87086; 87186; 87637; 93005; 93010; 96365; 99285-25; J0696